=== PATIENT | female | born 1985 | race Caucasian/White ===

== ENCOUNTER → 2017-12-17 | Outpatient (CLI) | payer OTHER | LOC: SUN.DIA 10:10 | DX: E11.9 Type 2 diabetes mellitus without complications (principal); I10 Essential (primary) hypertension; E66.9 Obesity, unspecified | CPT/HCPCS: G0108 ==

== ENCOUNTER → 2018-01-12 | Outpatient (CLI) | payer OTHER | LOC: SUN.DIA 15:00 | DX: E11.9 Type 2 diabetes mellitus without complications (principal); I10 Essential (primary) hypertension; E66.9 Obesity, unspecified | CPT/HCPCS: G0108 ==

== ENCOUNTER → 2018-01-27 | Outpatient (CLI) | payer OTHER | LOC: SUN.DIA 15:12 | DX: E11.9 Type 2 diabetes mellitus without complications (principal); I10 Essential (primary) hypertension; E66.9 Obesity, unspecified | CPT/HCPCS: G0109 ==

== ENCOUNTER → 2018-02-03 | Outpatient (CLI) | payer OTHER | LOC: SUN.DIA 08:51 | DX: E11.9 Type 2 diabetes mellitus without complications (principal); I10 Essential (primary) hypertension; E66.9 Obesity, unspecified | CPT/HCPCS: G0109 ==

== ENCOUNTER → 2018-02-17 | Outpatient (CLI) | payer OTHER | LOC: SUN.DIA 14:49 | DX: E11.9 Type 2 diabetes mellitus without complications (principal); I10 Essential (primary) hypertension; E66.9 Obesity, unspecified | CPT/HCPCS: G0109 ==

== ENCOUNTER → 2018-02-24 | Outpatient (CLI) | payer OTHER | LOC: SUN.DIA 13:56 | DX: E11.9 Type 2 diabetes mellitus without complications (principal); I10 Essential (primary) hypertension; E66.9 Obesity, unspecified | CPT/HCPCS: G0109 ==

== ENCOUNTER → 2018-05-03 | Outpatient (CLI) | payer OTHER ==
[~2018-05-03] MED LIST: CELEXA40 MG PO; CLARITIN 1010 MG/TAB PO; INDERAL 10MG10 MG PO; LIPITOR 10MG10 MG PO; PRILOTC PO; PROAIR HFA0.09 MG/AC IH; VITAMIN D 1001000 IU PO
== END ==
LOC: SUN.DIA 04-13 15:37
DX: E11.9 Type 2 diabetes mellitus without complications (principal); I10 Essential (primary) hypertension; E66.9 Obesity, unspecified
CPT/HCPCS: G0108

== ENCOUNTER 2021-09-19 08:59 | Emergency (ER) | payer BC ==
[~2021-09-19] VITALS: Ht 165.1 cm; Wt 122.7 kg
[2021-09-19 09:10] VITALS: TEMP 98.6
[2021-09-19 09:19] LABS: COLLECTION METHOD CLEAN CATCH
[2021-09-19 09:33] LABS: MUCOUS Present (NOT PRESENT); PH 5 (5-8); URINE APPEARANCE Cloudy (CLEAR/HAZY); URINE BACTERIA Rare /hpf (NONE SEEN); URINE BILIRUBIN Negative (NEGATIVE); URINE BLOOD Negative (NEGATIVE); URINE COLOR Amber (YELLOW); URINE GLUCOSE Negative (NEGATIVE); URINE KETONE Trace (NEGATIVE); URINE LEUKOCYTE ESTERASE 2+ (NEGATIVE); URINE NITRATE Negative (NEGATIVE); URINE PROTEIN(semi-quant) 1+ (NEGATIVE); URINE RBC >50 /hpf (0-2)
[2021-09-19 09:36] LABS: BASO % 0.7 % (0.0-2.0); EOS # 0.3 K/mm3 (0.0-0.7); EOS % 4.2 % (0.0-4.0); GRAN # 3.7 K/mm3 (1.4-6.5); GRAN % 59.6 % (42.2-75.2); HEMATOCRIT 38.6 % (37.0-47.0); HEMOGLOBIN 12.8 g/dl (12.5-16.0); LYMPH # 1.8 K/mm3 (1.2-3.4); LYMPH % 28.5 % (20.0-51.0); MEAN CELL VOLUME 83 fl (80.0-100.0); MEAN CORPUSCULAR HEMOGLOBIN 28 pg (27-31); MEAN CORPUSCULAR HGB CONC 33 g/dl (33.0-37.0); MEAN PLATELET VOLUME 11.5 fl (7.4-10.4); MONO # 0.4 K/mm3 (0.1-0.6); MONO % 6.5 % (1.7-9.3); PLATELET COUNT 268 K/mm3 (130-400); RED BLOOD COUNT 4.63 M/mm3 (4.10-5.30); REDCELL DISTRIBUTION WIDTH-CV 13.3 % (11.5-14.5)
[2021-09-19 09:55] LABS: ALBUMIN 3.6 gm/dL (3.5-5.0); BILIRUBIN,TOTAL 0.3 mg/dL (0.2-1.2); CALCIUM 9.8 mg/dL (8.4-10.2); CREATININE, serum 0.82 mg/dL (0.57-1.11); POTASSIUM 3.7 mmol/L (3.5-4.5); TOTAL PROTEIN 7.5 gm/dL (6.2-8.1)
[2021-09-19] MEDS ORDERED: CEPHALEXIN500 M1 PO (11:20)
[2021-09-19 11:34] VITALS: BP 144/95; PULSE 95
== END 2021-09-19 11:38 | disposition home or self-care (01) ==
LOC: COL.ER 08:59
PROVIDERS: Emergency Medicine
DX: N39.0 Urinary tract infection, site not specified (principal); Z88.1 Allergy status to other antibiotic agents; Z32.02 Encounter for pregnancy test, result negative
CPT/HCPCS: J0696; J2270; J2405; J7030; Q9967

== ENCOUNTER 2023-09-29 03:28 | Emergency (ER) | payer BC ==
[~2023-09-29] VITALS: Ht 165.1 cm; Wt 130.9 kg
[~2023-09-29 03:28] MED LIST changes: +AMOXICILLIN 8751 TAB PO; +CEPHALEXIN500 M1 PO; +GLUCOTROL XL10 MG PO; +HCTZ12.5TAB PO; +JANUMET 1000 MG1 TA1 PO; +MIRAPEX 1MG PO; +OZEMPIC2 MG/0.75 SQ; +PRIL40 PO; -PRILOTC PO; +PRINIVIL5 MG PO; +TOPROL XL100 MG PO; +ZOLOFT 100MG100 MG PO
[2023-09-29 04:34] LABS: COLLECTION METHOD CLEAN CATCH
[2023-09-29 04:38] LABS: BASO # 0.1 K/mm3 (0.0-0.2); BASO % 0.4 % (0.0-2.0); EOS # 0.2 K/mm3 (0.0-0.7); EOS % 1.6 % (0.0-4.0); GRAN # 9.7 K/mm3 (1.4-6.5); GRAN % 83.4 % (42.2-75.2); HEMOGLOBIN 11.3 g/dl (12.5-16.0); LYMPH # 0.8 K/mm3 (1.2-3.4); LYMPH % 6.9 % (20.0-51.0); MEAN CELL VOLUME 84 fl (80.0-100.0); MEAN CORPUSCULAR HEMOGLOBIN 27 pg (27-31); MEAN CORPUSCULAR HGB CONC 32 g/dl (33.0-37.0); MEAN PLATELET VOLUME 11.3 fl (7.4-10.4); MONO # 0.9 K/mm3 (0.1-0.6); MONO % 7.4 % (1.7-9.3); PLATELET COUNT 307 K/mm3 (130-400); RED BLOOD COUNT 4.27 M/mm3 (4.10-5.30); REDCELL DISTRIBUTION WIDTH-CV 13.6 % (11.5-14.5)
[2023-09-29 04:41] LABS: HEMATOCRIT 35.8 % (37.0-47.0)
[2023-09-29 04:42] LABS: PH 5.5 (5.0-8.5); URINE APPEARANCE CLEAR (CLEAR/HAZY); URINE BLOOD NEGATIVE (NEGATIVE); URINE COLOR YELLOW (YELLOW); URINE GLUCOSE 3+ (NEGATIVE); URINE KETONE 2+ (NEGATIVE); URINE NITRATE NEGATIVE (NEGATIVE); URINE PROTEIN(semi-quant) 1+ (NEGATIVE)
[2023-09-29 05:03] LABS: ALANINE AMINOTRANSFERASE 10 U/L (0-55); ALBUMIN 3.1 g/dL (3.5-5.0); ALKALINE PHOSPHATASE 93 U/L (40-150); ANION GAP 15 mmol/L (7-16); AST,SGOT 7 U/L (5-34); BILIRUBIN,TOTAL 0.8 mg/dL (0.2-1.2); BLOOD UREA NITROGEN 9 mg/dL (7-19); C-REACTIVE PROTEIN 30.69 mg/dL (0.00-0.50); CALCIUM 9.9 mg/dL (8.4-10.2); CHLORIDE 96 mEq/L (98-107); CREATININE, serum 0.98 mg/dL (0.57-1.11); GLUCOSE 364 mg/dL (70-99); LIPASE 9 U/L (8-78); POTASSIUM 3.6 mEq/L (3.5-4.5); SODIUM 134 mEq/L (136-145); TOTAL PROTEIN 7.3 g/dl (6.2-8.1)
[2023-09-29 05:28] LABS: ACETONE,SERUM NEGATIVE
[2023-09-29] MEDS ORDERED: Cefdinir 300 MG CAP PO ONE (05:30)
[2023-09-29] MEDS ORDERED: Insulin Regular Human (NovoLIN R/HumuLIN R) IV ONE (05:30)
[2023-09-29] MEDS ORDERED: Ketorolac 30 MG/ML VIAL IV ONE (05:30)
[2023-09-29] MEDS ORDERED: ZITHROMAX Z PA250 MG PO (05:33)
[2023-09-29] MEDS ORDERED: OMNICEF 300MG300 MG PO (05:33)
[2023-09-29] MEDS ORDERED: VENTOLIN0.09 MG IH (05:33)
[2023-09-29 07:05] VITALS: BP 142/99; PULSE 116; TEMP 99.3
== END 2023-09-29 07:05 | disposition home or self-care (01) ==
LOC: COL.ER 03:28
PROVIDERS: Emergency Medicine
DX: J18.9 Pneumonia, unspecified organism (principal); E11.65 Type 2 diabetes mellitus with hyperglycemia
CPT/HCPCS: J1815; J1885